=== PATIENT | female | born 1980 | race Caucasian/White ===

== ENCOUNTER 2019-05-28 18:14 | Inpatient (IN) | payer OTHER ==
[2019-05-28 19:12] VITALS: BMI 22.6
--- NOTE | 2019-05-28 21:28 | HP ---
"CIWA Score - Admission Criteria OASAS Guidelines: Admission for Medically Managed Detox: Requires at least one of the followin. CIWA greater than 12 2. Seizures within the past 24 hours 3. Delirium tremens within the past 24 hours 4. Hallucinations within the past 24 hours 5. Acute intervention needed for co occurring medical disorder 6. Acute intervention needed for co occurring psychiatric disorder 7. Severe withdrawal that cannot be handled at a lower level of care (continued vomiting, continued diarrhea, abnormal vital signs) requiring intravenous medication and/or fluids 8. Admission ROS S - [facility] Chief Complaint: Here for rehab Allergies/Adverse Reactions: Allergies Allergy/AdvReac Type Severity Reaction Status Date / Time No Known Allergies Allergy Verified 05/28/19 18:56 History of Present Illness: 38 yo presents for rehab w/ recent detox from [facility] for heroin , crystal meth use disorder. Heroin use began at age 36. Last used 05/24/19. (Nasal/injection) Crystal methamphetamine use began at age 33. Last used 05/21/19. Labs/PE from [facility] reviewed: Quantiferon Plus TB: Neg: Done at [facility] on 07/26/18. HGB A1C = 5.2 EKG: NSR w/ Qt/Qtc 386/459 CBC: Abn Hx: Multiple overdoses; Last 4 months ago. Has a Narcan Kit. PMHx: Denies significant PMH. MHHx: Anxiety r/t withdrawal; Depression. On Meds. Denies thoughts of harming self or others. Patient Name: Emili Puga Date: 1980 Address: [address] [place] [address] Sex: Female Rx Written Rx Dispensed Drug Quantity Days Supply Prescriber Name 03/01/2019 03/02/2019 buprenorphine-naloxone 2-0.5 mg sl film 2 2 Magdalene Cota MD 03/01/2019 03/02/2019 buprenorphine-naloxone 2-0.5 mg sl film 4 2 Magdalene Cota MD Search Terms: Emili Puga, 1980 Search Date: 05/28/2019 09:26:16 PM States Searched: [place], [place], [place], [place], [place], [place] The Drug Utilization Report below displays the controlled substance prescriptions, if any, that were dispensed in the indicated state(s). The information displayed on this report is compiled from requests submitted to other states' PMPs, and accurately reflects the information as returned by them. Blank hernandez indicate data not provided by other state. This report was requested by: Claire Stroud | Reference #: [id number] Exam Limitations: No Limitations - Ebola screening Have you traveled outside of the country in the last 21 days: No (N) Have you had contact with anyone from an Ebola affected area: No Have you been sick,other than usual withdrawal symptoms: No (Denies exposure to measles) Do you have a fever: No - Review of Systems Constitutional: No Symptoms Reported EENT: reports: No Symptoms Reported Respiratory: reports: No Symptoms reported, Wheezing GI: reports: No Symptoms Reported : reports: No Symptoms Reported Musculoskeletal: reports: No Symptoms Reported Neuro: reports: No Symptoms reported Endocrine: reports: Increased Thirst Hematology: reports: Anemia (Low iron) Psychiatric: reports: Orientated x3, Agitated, Depressed (Denies thoughts of harming self or others) Patient History - PPD History Previous Implant?: Yes Documented Results: Negative w/proof Implanted On Prior [facility] Admission?: No Date: 05/25/19 (Quantiferon Gold = Neg ) PPD to be Administered?: No - Reproductive History Patient is a Female of Child Bearing Age (11 -55 yrs old): Yes Last Menstrual Period: 05/25/19 (Had a recent PAP smear) Patient : No - Smoking Cessation Smoking history: Former smoker Have you smoked in the past 12 months: No Hx Chewing Tobacco Use: No Initiated information on smoking cessation: No - Substance & Tx. History Hx Alcohol Use: No Hx Substance Use: Yes Substance Use Type: Heroin, Opiates, Tranquilizers (Crystal meth) Hx Substance Use Treatment: Yes (detox, rehab, past Suboxone) - Substances abused Heroin Substance route: Injection Frequency: Daily Amount used: 5 bags Age of first use: 36 Date of last use: 05/28/19 Benzodiazepine (Klonopin) Substance route: Oral Frequency: 1-3 times last 30 days Amount used: 2 pills Age of first use: 36 Date of last use: 05/27/19 Crystal meth Substance route: Smoking Frequency: 1-3 times last 30 days Amount used: 1 bag Age of first use: 33 Date of last use: 05/26/19 Admission Physical Exam [facility] - Vital Signs Vital Signs: Vital Signs - 24 hr 05/28/19 05/28/19 19:00 20:49 Temperature 97.8 F 97.8 F Pulse Rate 98 H 98 H Respiratory 18 18 Rate Blood Pressure 123/87 123/87 - Physical General Appearance: Yes: No Apparent Distress, Nourished HEENTM: Yes: EOMI, Hearing grossly Normal, Normocephalic, Normal Voice, EMILY ( Pupils = 3 mm), Pharynx Normal Respiratory: Yes: Lungs Clear, Normal Breath Sounds, No Respiratory Distress Neck: Yes: No masses,lesions,Nodules, Supple Breast: Yes: Breast Exam Deferred Cardiology: Yes: Regular Rhythm, Regular Rate (HR: 88), S1, S2 Abdominal: Yes: Non Tender, Flat, Soft, Increased Bowel Sounds Genitourinary: Yes: Within Normal Limits Back: Yes: Normal Inspection Musculoskeletal: Yes: full range of Motion, Gait Steady Extremities: Yes: Normal Capillary Refill, Normal Range of Motion, Non-Tender Neurological: Yes: motor vehicle technician II-XII NML intact, Fully Oriented, Alert, Motor Strength 5/5, Normal Mood/Affect Integumentary: Yes: Normal Color, Warm Lymphatic: Yes: Within Normal Limits - Diagnostic (1) Opioid use disorder, moderate, in early remission Current Visit: Yes Status: Acute (2) 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 Current Visit: Yes Status: Acute (3) Abnormal CBC Current Visit: Yes Status: Chronic Cleared for Admission [facility] - Detox or Rehab Claeared for Rehab Admission: Yes Breathalyzer - Breathalyzer Breathalyzer: 0 Urine Drug Screen - Test Device Lot number: [id number] Expiration date: 02/27/21 - Control Is test valid?: Yes - Results Drug screen NEGATIVE: No Urine drug screen results: MTD-Methadone Inpatient Rehab Admission - Rehab Decision to Admit Inpatient rehab admission?: Yes - Initial Determination Are CD services needed?: Yes Free of communicable disease: Yes Not in need of hospitalization: Yes - Rehab Admission Criteria Previous failed treatment: Yes Poor recovery environment: Yes Comorbidities: Yes Lacks judgement: No Patient is meeting Inpatient Rehab admission criteria:: Yes"
[2019-05-28] MEDS ORDERED: ACETAMINOPHEN 325 MG TABLET (FP) PO PRN (21:50)
[2019-05-28] MEDS ORDERED: MAGNESIUM CITRATE 300 ML BOTTLE PO PRN (21:50)
[2019-05-28] MEDS ORDERED: MAG HYDROX/AL HYDROX/SIMETH 30 ML UNIT-DOSE CUP PO PRN (21:50)
[2019-05-28] MEDS ORDERED: MAGNESIUM HYDROX 2400MG/30ML ORAL SUSPENSION 30 ML CUP PO PRN (21:50)
[2019-05-28] MEDS ORDERED: LOPERAMIDE HCL 2 MG CAPSULE PO PRN (21:50)
[2019-05-28] MEDS ORDERED: P-EPHED 60MG/TRIPROLIDI 2.5MG TABLET PO PRN (21:50)
[2019-05-28] MEDS ORDERED: guaiFENesin 200 MG/10 ML 10 ML UNIT-DOSE CUPS PO PRN (21:50)
[2019-05-28] MEDS ORDERED: IBUPROFEN 400 MG TABLET (FP) PO PRN (21:50)
[2019-05-28] MEDS ORDERED: hydrOXYzine PAMOATE 50 MG CAPSULE (FP) PO PRN (21:50)
[2019-05-28] MEDS ORDERED: MENTHOL/PHENOL 1 EACH UD MM PRN (21:50)
[2019-05-28] MEDS: hydrOXYzine PAMOATE 25 MG CAPSULE (FP) PO PRN (23:27)
[2019-05-28] MEDS: MELATONIN 5 MG TABLETS PO PRN (23:27)
[2019-05-28] MEDS: THIAMINE HCL 100 MG TABLET (FP) PO SCH (23:27)
[2019-05-29] MEDS: PRENATAL VITAMINS W/ FOLIC ACID TABLET (FP) PO SCH (09:54)
[2019-05-29] MEDS: hydrOXYzine PAMOATE 25 MG CAPSULE (FP) PO PRN ×3 (10:22→21:27)
[2019-05-29] MEDS ORDERED: ONDANSETRON *ODT* 4 MG TABLET SL PRN (13:40)
--- NOTE | 2019-05-29 13:45 | PN ---
S Progress Note Note: Pt is nw to rehab unit admitted yesterday from [facility] reports withdrawal sx from heroin detox at [facility] yesterday. Reports n/v,constipation,muscle /body aches and spasms, runny nose. Vital Signs - 24 hr 05/28/19 05/28/19 05/28/19 19:00 20:49 22:40 Temperature 97.8 F 97.8 F 98.4 F Pulse Rate 98 H 98 H 85 Respiratory 18 18 18 Rate Blood Pressure 123/87 123/87 119/87 05/29/19 05/29/19 05:26 07:13 Temperature 97.8 F Pulse Rate 85 93 H Respiratory 18 18 Rate Blood Pressure 104/78 Lab results pending a:w/s roma plan:zofran sl 8mg as directed prn actifed prn MOM for constipation and citrate if not effective Robaxin 500 mg po tid prn for muscle spasm motrin prn for body aches.
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
[2019-05-29 13:54] LABS: HEMATOCRIT 35.9 % (32.4-45.2); HEMOGLOBIN 11.8 GM/dL (10.7-15.3); MCH 29.4 pg (25.7-33.7); MCHC 32.9 g/dl (32.0-36.0); MEAN CELL VOLUME 89.3 fl (80-96); MEAN PLT VOLUME 10.2 fl (7.5-11.1); PLATELET COUNT 208 K/MM3 (134-434); RBC 4.02 M/mm3 (3.60-5.2); RDW 14.2 % (11.6-15.6)
[2019-05-29] MEDS: METHOCARBAMOL 500 MG TABLET PO PRN ×2 (14:03→21:27)
[2019-05-29 14:12] LABS: ALBUMIN 3.7 g/dl (3.4-5.0); BILIRUBIN,TOTAL 0.4 mg/dL (0.2-1); BLOOD UREA NITROGEN 9.6 mg/dL (7-18); CALCIUM 9.7 mg/dL (8.5-10.1); CREATININE 0.9 mg/dL (0.55-1.3); POTASSIUM 4.4 mmol/L (3.5-5.1); TOT PROT 7.5 g/dl (6.4-8.2)
[2019-05-29] MEDS: PARoxetine HCL 20 MG TABLET PO SCH (15:09)
[2019-05-29] MEDS: THIAMINE HCL 100 MG TABLET (FP) PO SCH (21:27)
[2019-05-29] MEDS: MELATONIN 5 MG TABLETS PO PRN (21:28)
[2019-05-30 07:08] VITALS: BP 104/71; PULSE 99; TEMP 98.3
[2019-05-30] MEDS: PARoxetine HCL 20 MG TABLET PO SCH (09:10)
[2019-05-30] MEDS: PRENATAL VITAMINS W/ FOLIC ACID TABLET (FP) PO SCH (09:10)
[2019-05-30] MEDS: hydrOXYzine PAMOATE 25 MG CAPSULE (FP) PO PRN ×2 (10:58→21:14)
[2019-05-30] MEDS: METHOCARBAMOL 500 MG TABLET PO PRN ×2 (10:58→21:14)
[2019-05-30] MEDS ORDERED: NICOTINE POLACRILEX 2 MG GUM BUC PRN (11:58)
[2019-05-30] MEDS ORDERED: NICOTINE 14 MG/24 HOURS TOPICAL PATCH TD SCH (12:00)
--- NOTE | 2019-05-30 13:05 | PN ---
BHS COWS - Scale Resting Pulse: 1= CO 81-100 Sweatin=Flushed/Facial Moisture Restless Observation: 0= Sits Still Pupil Size: 0= Normal to Room Light Bone or Joint Aches: 2= Severe Diffuse Aches Runny Nose/ Eye Tearin= Runny Nose/Eyes GI Upset > 30mins: 1= Stomach Cramp Tremor Observation of Outstretched Hands: 2= Slight Tremor Visible Yawning Observation: 1= 1-2x During Session Anxiety or Irritability: 2=Irritable/Anxious Goose Flesh Skin: 0=Smooth Skin COWS Score: 13 BHS Progress Note (SOAP) Subjective: Patient is experiencing withdrawal symptoms. " I don't feel comfortable in my own skin." Completed Detox in [facility] and came to [facility] for Rehab. Her last dose of methadone was on 05/28 and she has not been prescribed methadone while in rehabl. patient was on suboxone in February 2019 during a stay in drug rehab, and states that 3 years ago, she was on Suboxone for 3 years but stopped because she could not get to her provider on a regular basis. She also was using crystal meth and benzos to "keep her going" while on Suboxone. Objective: - Physical General Appearance: No Apparent Distress, Nourished HEENTM: Normocephalic, PERRLA Respiratory: Lungs Clear, Normal Breath Sounds, No Respiratory Distress Neck: Supple Cardiology: S1, S2 Abdominal: Non Tender, Flat, Soft, +Bowel Sounds Musculoskeletal: full range of Motion, Gait Steady Extremities: brisk Capillary Refill, Neurological: fingerprint technician II-XII intact, Fully Oriented, Alert, Integumentary: Color consistent throughout trunk and extremities. COWS score; 13 UTOX upon admission: Drug screen NEGATIVE: No Urine drug screen results: MTD-Methadone 05/30/19 13:08 CBC, BMP 05/29/19 08:43 05/29/19 08:43 Vital Signs (72 hours) 05/28/19 05/28/19 05/28/19 19:00 20:49 22:40 Temperature 97.8 F 97.8 F 98.4 F Pulse Rate 98 H 98 H 85 Respiratory 18 18 18 Rate Blood Pressure 123/87 123/87 119/87 05/29/19 05/29/19 05/29/19 05:26 07:13 15:15 Temperature 97.8 F Pulse Rate 85 93 H 111 H Respiratory 18 18 20 Rate Blood Pressure 104/78 119/82 05/30/19 05/30/19 05/30/19 00:30 03:30 07:07 Temperature 98.3 F Pulse Rate 99 H Respiratory 16 16 18 Rate Blood Pressure 104/71 05/30/19 13:10 Patient Name: Emili Puga Date: 1980 Address: [address] [place] [address] Sex: Female 03/01/2019 03/02/2019 buprenorphine-naloxone 2-0.5 mg sl film 2 2 Magdalene Cota MD 03/01/2019 03/02/2019 buprenorphine-naloxone 2-0.5 mg sl film 4 2 Magdalene Cota MD 05/30/19 13:14 05/30/19 13:19 05/30/19 13:27 Assessment: Heroin Withdrawal symptoms Good candidate for suboxone 05/30/19 13:22 Plan: PLAN: will order urine toxicology, pending results, will start on 2mg/BID of Suboxone.
[2019-05-30 14:49] LABS: PH,URINE 5.5 (5.0-8.0); URINE APPEARANCE CLEAR; URINE BILIRUBIN NEGATIVE (NEGATIVE); URINE COLOR YELLOW; URINE GLUCOSE (UA) NEGATIVE (NEGATIVE); URINE KETONE NEGATIVE (NEGATIVE); URINE LEUK ESTERASE NEGATIVE (NEGATIVE); URINE NITRITE NEGATIVE (NEGATIVE); URINE PROTEIN NEGATIVE (NEGATIVE); URINE UROBILINOGEN 0.2 mg/dL (0.2-1.0)
[2019-05-30] MEDS ORDERED: BUPRENORPHINE/NALOXONE 2 MG/0.5 MG FILM PACKET SL SCH (18:00)
[2019-05-30] MEDS: MELATONIN 5 MG TABLETS PO PRN (21:13)
[2019-05-30] MEDS: THIAMINE HCL 100 MG TABLET (FP) PO SCH (21:13)
--- NOTE | 2019-05-31 01:18 | PN ---
[facility] Progress Note Note: INFORMED CLIENT ELOPED OFF UNIT AT APPROX 1130 PM ON 05/30/2019
== END 2019-05-30 23:39 | disposition left against medical advice (07) | DRG 770 ==
LOC: YASAS 18:14 → Y3E 21:49
PROVIDERS: ADMIT Neuromusculoskeletal Medicine & OMM; ATTEND Neuromusculoskeletal Medicine & OMM
PROC: HZ42ZZZ Group Counseling for Substance Abuse Treatment, Cognitive-Behavioral (ICD-10-PCS; principal; 2019-05-28)
DX: F11.23 Opioid dependence with withdrawal (principal); F15.10 Other stimulant abuse, uncomplicated; F32.9 Major depressive disorder, single episode, unspecified; F19.24 Other psychoactive substance dependence with psychoactive substance-induced mood disorder; F19.282 Other psychoactive substance dependence with psychoactive substance-induced sleep disorder; R79.9 Abnormal finding of blood chemistry, unspecified; Z87.891 Personal history of nicotine dependence
CPT/HCPCS: 36415; 80053; 81003; 81025; 85027; 86593

== ENCOUNTER 2019-10-16 12:42 | Inpatient (IN) | payer OTHER ==
[2019-10-16 13:05] VITALS: BMI 24.6
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
[2019-10-16] MEDS ORDERED: MAGNESIUM HYDROX 2400MG/30ML ORAL SUSPENSION 30 ML CUP PO PRN (19:35)
[2019-10-16] MEDS ORDERED: BISMUTH SUBSALICYLATE 524 MG/30 ML UD PO PRN (19:35)
[2019-10-16] MEDS ORDERED: MENTHOL/PHENOL 1 EACH UD MM PRN (19:35)
[2019-10-16] MEDS ORDERED: hydrOXYzine PAMOATE 25 MG CAPSULE (FP) PO PRN (19:35)
[2019-10-16] MEDS ORDERED: MAG HYDROX/AL HYDROX/SIMETH 30 ML UNIT-DOSE CUP PO PRN (19:35)
[2019-10-16] MEDS ORDERED: ACETAMINOPHEN 325 MG TABLET (FP) PO PRN ×2 (19:35)
[2019-10-16] MEDS ORDERED: IBUPROFEN 400 MG TABLET (FP) PO PRN (19:35)
[2019-10-16] MEDS ORDERED: MAGNESIUM CITRATE 300 ML BOTTLE PO PRN (19:35)
[2019-10-16] MEDS ORDERED: cloNIDine HCL 0.1 MG TABLET PO PRN (19:36)
[2019-10-16] MEDS: THIAMINE HCL 100 MG TABLET (FP) PO SCH (21:20)
[2019-10-16] MEDS: MELATONIN 5 MG TABLETS PO PRN (21:20)
[2019-10-16] MEDS ORDERED: METHADONE HCL 10 MG TABLET (FOR DETOX USE ONLY) PO ONE (22:00)
[2019-10-16] MEDS: BACITRACIN/POLYMYXIN B SULFATE 15 GM TUBE TP SCH (22:21)
[2019-10-17] MEDS ORDERED: METHADONE HCL 5 MG TABLET (FOR DETOX USE ONLY) PO ONE (10:00)
[2019-10-17 10:04] LABS: HEMATOCRIT 33.3 % (32.4-45.2); HEMOGLOBIN 11.1 GM/dL (10.7-15.3); MCH 29.7 pg (25.7-33.7); MCHC 33.5 g/dl (32.0-36.0); MEAN CELL VOLUME 88.6 fl (80-96); MEAN PLT VOLUME 8.3 fl (7.5-11.1); PLATELET COUNT 318 K/MM3 (134-434); RBC 3.75 M/mm3 (3.60-5.2); RDW 12.8 % (11.6-15.6); WHITE BLOOD COUNT 4.1 K/mm3 (4.0-10.0)
[2019-10-17] MEDS: PRENATAL VITAMINS W/ FOLIC ACID TABLET (FP) PO SCH (10:07)
[2019-10-17] MEDS: BACITRACIN/POLYMYXIN B SULFATE 15 GM TUBE TP SCH ×2 (10:09→22:27)
[2019-10-17 10:19] LABS: BILIRUBIN,TOTAL 0.3 mg/dL (0.2-1); BLOOD UREA NITROGEN 7.8 mg/dL (7-18); CALCIUM 8.5 mg/dL (8.5-10.1); CREATININE 0.7 mg/dL (0.55-1.3); POTASSIUM 4.3 mmol/L (3.5-5.1); TOT PROT 6.4 g/dl (6.4-8.2)
--- NOTE | 2019-10-17 13:13 | PN ---
BHS COWS - Scale Resting Pulse: 1= [place] 81-100 Sweatin= Chills/Flushing Restless Observation: 0= Sits Still Pupil Size: 1= Pupils >than Normal Bone or Joint Aches: 1= Mild Discomfort Runny Nose/ Eye Tearin= None GI Upset > 30mins: 1= Stomach Cramp Tremor Observation of Outstretched Hands: 2= Slight Tremor Visible Yawning Observation: 0= None Anxiety or Irritability: 2=Irritable/Anxious Goose Flesh Skin: 3=Piloerection COWS Score: 12 BHS Progress Note (SOAP) Subjective: 39 years old female admitted on 10/16/19 for opiate withdrawal sx management treating with methadone detox regimen ate breakfast and lunch resting on bed feeling tired Objective: 10/17/19 13:16 Vital Signs Temperature 97.5 F L 10/17/19 09:22 Pulse Rate 92 H 10/17/19 09:22 Respiratory Rate 18 10/17/19 09:22 Blood Pressure 112/76 10/17/19 09:22 O2 Sat by Pulse Oximetry (%) Laboratory Last Values WBC 4.1 K/mm3 (4.0-10.0) 10/17/19 07:50 RBC 3.75 M/mm3 (3.60-5.2) 10/17/19 07:50 Hgb 11.1 GM/dL (10.7-15.3) 10/17/19 07:50 Hct 33.3 % (32.4-45.2) 10/17/19 07:50 MCV 88.6 fl (80-96) 10/17/19 07:50 MCH 29.7 pg (25.7-33.7) 10/17/19 07:50 MCHC 33.5 g/dl (32.0-36.0) 10/17/19 07:50 RDW 12.8 % (11.6-15.6) 10/17/19 07:50 Plt Count 318 K/MM3 (134-434) D 10/17/19 07:50 MPV 8.3 fl (7.5-11.1) D 10/17/19 07:50 Sodium 142 mmol/L (136-145) 10/17/19 07:50 Potassium 4.3 mmol/L (3.5-5.1) 10/17/19 07:50 Chloride 106 mmol/L (98-107) 10/17/19 07:50 Carbon Dioxide 31 mmol/L (21-32) 10/17/19 07:50 Anion Gap 4 MMOL/L (8-16) L 10/17/19 07:50 BUN 7.8 mg/dL (7-18) 10/17/19 07:50 Creatinine 0.7 mg/dL (0.55-1.3) 10/17/19 07:50 Est GFR (CKD-EPI)AfAm 127.39 10/17/19 07:50 Est GFR (CKD-EPI)NonAf 109.91 10/17/19 07:50 Random Glucose 87 mg/dL (74-106) 10/17/19 07:50 Calcium 8.5 mg/dL (8.5-10.1) 10/17/19 07:50 Total Bilirubin 0.3 mg/dL (0.2-1) 10/17/19 07:50 AST 24 U/L (15-37) 10/17/19 07:50 ALT 25 U/L (13-61) 10/17/19 07:50 Alkaline Phosphatase 83 U/L (45-117) 10/17/19 07:50 Total Protein 6.4 g/dl (6.4-8.2) 10/17/19 07:50 Albumin 3.0 g/dl (3.4-5.0) L 10/17/19 07:50 POC Urine HCG, Qual Negative 10/16/19 19:12 RPR Titer Nonreactive (NONREACTIVE) 10/17/19 07:50 lab noted Assessment: 10/17/19 13:16 opiate withdrawal Plan: methadone regimen
--- NOTE | 2019-10-17 15:58 | CONSULT ---
[facility] Psychiatric Consult - Data Date of interview: 10/17/19 Admission source: [facility] Identifying data: Patient is a 39 year old single [place] female, mother of one, unemployed, domiciled, and denies receiving financial assistance. This is patient's first admission to detox at [facility]. Patient admitted to for opiate dependence. Substance Abuse History: Smoking Cessation. Smoking history: Former smoker. Have you smoked in the past 12 months: No. Hx Chewing Tobacco Use: No. Initiated information on smoking cessation: No. - Substances abused. Heroin. Substance route: Injection. Frequency: Daily. Amount used: 5-6 bags. Age of first use: 36. Date of last use: 10/16/19. Benzodiazepine ( Klonopin). Substance route: Oral. Frequency: 1-3 times last 30 days. Amount used: 2 pills. Age of first use: 36. Date of last use: 05/27/19. Crystal meth. Substance route: Smoking. Frequency: 1-3 times last 30 days. Amount used: 1 bag. Age of first use: 33. Date of last use: 05/26/19 Medical History: unremarkable. Psychiatric History: Patient denies history of psychiatric hospitalizations and suicide attempt. States that her first psychiatric contact was in her late 20's after seeing a psychiatrist in [facility]. She reports additional psychiatric treatment when admitted to detox/rehab facilities. Reports past trial of zoloft and adderal although denies history of ADHD. States that her PCP currently prescribes her paxil 30mg (last took two days ago). Diagnosis of depression. At present patient reports feeling sad. Physical/Sexual Abuse/Trauma History: denies. 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 Detoxification in progress. Will order Paxil 30mg daily. Benefits and side effects discussed. Verbal consent given.
[2019-10-17] MEDS: THIAMINE HCL 100 MG TABLET (FP) PO SCH (22:26)
[2019-10-17] MEDS: MELATONIN 5 MG TABLETS PO PRN (22:34)
[2019-10-18] MEDS: METHOCARBAMOL 500 MG TABLET PO PRN ×2 (07:16→20:21)
[2019-10-18] MEDS ORDERED: METHADONE HCL 10 MG TABLET (FOR DETOX USE ONLY) PO ONE (10:00)
[2019-10-18] MEDS: PRENATAL VITAMINS W/ FOLIC ACID TABLET (FP) PO SCH (10:44)
[2019-10-18] MEDS: PARoxetine HCL 10 MG TABLET PO SCH (10:44)
[2019-10-18] MEDS: BACITRACIN/POLYMYXIN B SULFATE 15 GM TUBE TP SCH ×2 (10:45→22:27)
--- NOTE | 2019-10-18 11:56 | PN ---
[facility] COWS - Scale Resting Pulse: 0= MI 80 or Below Sweatin= Chills/Flushing Restless Observation: 0= Sits Still Pupil Size: 0= Normal to Room Light Bone or Joint Aches: 1= Mild Discomfort Runny Nose/ Eye Tearin= Nasal Congestion GI Upset > 30mins: 1= Stomach Cramp Tremor Observation of Outstretched Hands: 1= Tremor [place], Not Seen Yawning Observation: 1= 1-2x During Session Anxiety or Irritability: 1=Feels Anxious/Irritable Goose Flesh Skin: 0=Smooth Skin COWS Score: 7 [facility] Progress Note (SOAP) Subjective: 39 years old female admitted on 10/16/19 for opiate withdrawal sx management treating with methadone detox regimen feeling better today slept through the night mild general body aches Objective: 10/18/19 12:07 Vital Signs Temperature 97.2 F L 10/18/19 09:22 Pulse Rate 77 10/18/19 09:22 Respiratory Rate 18 10/18/19 09:22 Blood Pressure 120/86 10/18/19 09:22 O2 Sat by Pulse Oximetry (%) Laboratory Last Values WBC 4.1 K/mm3 (4.0-10.0) 10/17/19 07:50 RBC 3.75 M/mm3 (3.60-5.2) 10/17/19 07:50 Hgb 11.1 GM/dL (10.7-15.3) 10/17/19 07:50 Hct 33.3 % (32.4-45.2) 10/17/19 07:50 MCV 88.6 fl (80-96) 10/17/19 07:50 MCH 29.7 pg (25.7-33.7) 10/17/19 07:50 MCHC 33.5 g/dl (32.0-36.0) 10/17/19 07:50 RDW 12.8 % (11.6-15.6) 10/17/19 07:50 Plt Count 318 K/MM3 (134-434) D 10/17/19 07:50 MPV 8.3 fl (7.5-11.1) D 10/17/19 07:50 Sodium 142 mmol/L (136-145) 10/17/19 07:50 Potassium 4.3 mmol/L (3.5-5.1) 10/17/19 07:50 Chloride 106 mmol/L (98-107) 10/17/19 07:50 Carbon Dioxide 31 mmol/L (21-32) 10/17/19 07:50 Anion Gap 4 MMOL/L (8-16) L 10/17/19 07:50 BUN 7.8 mg/dL (7-18) 10/17/19 07:50 Creatinine 0.7 mg/dL (0.55-1.3) 10/17/19 07:50 Est GFR (CKD-EPI)AfAm 127.39 10/17/19 07:50 Est GFR (CKD-EPI)NonAf 109.91 10/17/19 07:50 Random Glucose 87 mg/dL (74-106) 10/17/19 07:50 Calcium 8.5 mg/dL (8.5-10.1) 10/17/19 07:50 Total Bilirubin 0.3 mg/dL (0.2-1) 10/17/19 07:50 AST 24 U/L (15-37) 10/17/19 07:50 ALT 25 U/L (13-61) 10/17/19 07:50 Alkaline Phosphatase 83 U/L (45-117) 10/17/19 07:50 Total Protein 6.4 g/dl (6.4-8.2) 10/17/19 07:50 Albumin 3.0 g/dl (3.4-5.0) L 10/17/19 07:50 POC Urine HCG, Qual Negative 10/16/19 19:12 RPR Titer Nonreactive (NONREACTIVE) 10/17/19 07:50 lab noted Assessment: 10/18/19 12:07 opiate withdrawal Plan: methadone regimen
[2019-10-18] MEDS: MELATONIN 5 MG TABLETS PO PRN (22:27)
[2019-10-18] MEDS: THIAMINE HCL 100 MG TABLET (FP) PO SCH (22:27)
[2019-10-19] MEDS: METHOCARBAMOL 500 MG TABLET PO PRN (01:21)
[2019-10-19] MEDS: MELATONIN 5 MG TABLETS PO PRN (02:54)
[2019-10-19] MEDS ORDERED: METHADONE HCL 5 MG TABLET (FOR DETOX USE ONLY) PO ONE (06:00)
[2019-10-19 09:14] VITALS: BP 121/84; PULSE 97; TEMP 98.6
[2019-10-19] MEDS: PARoxetine HCL 10 MG TABLET PO SCH (10:29)
[2019-10-19] MEDS: PRENATAL VITAMINS W/ FOLIC ACID TABLET (FP) PO SCH (10:29)
[2019-10-19] MEDS: BACITRACIN/POLYMYXIN B SULFATE 15 GM TUBE TP SCH (10:29)
--- NOTE | 2019-10-19 12:39 | DS ---
[facility] Detox Discharge Summary Admission Date: 10/16/19 - History Present History: Opioid Dependence Pertinent Past History: Pt completed detox from opioids. Pt was to have remained here for rehab, but pt this morning decided to be discharged to home. d/w MAT options. Pt states will f /u PCP - Physical Exam Results Vital Signs: Vital Signs Temperature 98.6 F 10/19/19 09:14 Pulse Rate 97 H 10/19/19 09:14 Respiratory Rate 18 10/19/19 09:14 Blood Pressure 121/84 10/19/19 09:14 O2 Sat by Pulse Oximetry (%) - Treatment Hospital Course: Detox Protocol Followed, Detoxed Safely, Discharged Condition Good - Medication Discharge Medications: Ambulatory Orders Paroxetine HCl [Paxil -] 30 mg PO DAILY 05/28/19 Naloxone HCl [Narcan] 4 mg NS ASDIR PRN #1 spray 10/17/19
== END 2019-10-19 11:20 | disposition home or self-care (01) | DRG 773 ==
LOC: YASAS 12:42 → Y3N 20:07
PROVIDERS: ADMIT Allergy & Immunology; ATTEND Allergy & Immunology
PROC: HZ2ZZZZ Detoxification Services for Substance Abuse Treatment (ICD-10-PCS; principal; 2019-10-16)
DX: F11.23 Opioid dependence with withdrawal (principal); F15.10 Other stimulant abuse, uncomplicated; F19.24 Other psychoactive substance dependence with psychoactive substance-induced mood disorder; F32.9 Major depressive disorder, single episode, unspecified; Z87.891 Personal history of nicotine dependence
CPT/HCPCS: 36415; 80053; 81025; 85027; 86593

== ENCOUNTER 2021-03-17 15:45 | Inpatient (IN) | payer OTHER ==
[2021-03-17 18:39] VITALS: BMI 27.3
[2021-03-17] MEDS ORDERED: METHOCARBAMOL 500 MG TABLET PO PRN (19:16)
[2021-03-17] MEDS ORDERED: BISMUTH SUBSALICYLATE 524 MG/30 ML PO PRN (19:16)
[2021-03-17] MEDS ORDERED: ONDANSETRON *ODT* 4 MG TABLET SL PRN (19:16)
[2021-03-17] MEDS ORDERED: MAG HYDROX/AL HYDROX/SIMETH 30 ML UNIT-DOSE CUP PO PRN (19:16)
[2021-03-17] MEDS ORDERED: MAGNESIUM HYDROX 2400MG/30ML ORAL SUSPENSION 30 ML CUP PO PRN (19:16)
[2021-03-17] MEDS ORDERED: MENTHOL/PHENOL 1 EACH UD MM PRN (19:16)
[2021-03-17] MEDS ORDERED: MAGNESIUM CITRATE 300 ML BOTTLE PO PRN (19:16)
[2021-03-17] MEDS ORDERED: hydrOXYzine PAMOATE 25 MG CAPSULE (FP) PO PRN (19:16)
[2021-03-17] MEDS ORDERED: IBUPROFEN 400 MG TABLET (FP) PO PRN (19:16)
[2021-03-17] MEDS ORDERED: ACETAMINOPHEN 325 MG TABLET (FP) PO PRN ×2 (19:16)
[2021-03-17] MEDS ORDERED: diazePAM 5 MG TABLET PO PRN (19:26)
[2021-03-17] MEDS: THIAMINE HCL 100 MG TABLET (FP) PO SCH (22:28)
[2021-03-17] MEDS: diazePAM 5 MG TABLET PO SCH (22:28)
[2021-03-17] MEDS: MELATONIN 5 MG TABLETS PO SCH (22:28)
[2021-03-18] MEDS: diazePAM 5 MG TABLET PO SCH ×4 (06:04→22:12)
[2021-03-18] MEDS ORDERED: METHADONE HCL 10 MG TABLET ONE (09:44)
[2021-03-18] MEDS ORDERED: METHADONE 160 MG, METHADONE 20 MG PO ONE (09:45)
[2021-03-18] MEDS ORDERED: METHADONE HCL 40 MG DISPERSABLE TABLET ONE (09:45)
[2021-03-18] MEDS ORDERED: METHADONE HCL 10 MG TABLET PO ONE (10:00)
[2021-03-18 10:10] LABS: HEMATOCRIT 33.6 % (32.4-45.2); HEMOGLOBIN 11.2 GM/dL (10.7-15.3); MCH 30.2 pg (25.7-33.7); MCHC 33.4 g/dl (32.0-36.0); MEAN CELL VOLUME 90.5 fl (80-96); MEAN PLT VOLUME 10.5 fl (7.5-11.1); PLATELET COUNT 188 K/MM3 (134-434); RBC 3.72 M/mm3 (3.60-5.2); RDW 12.9 % (11.6-15.6); WHITE BLOOD COUNT 5.5 K/mm3 (4.0-10.0)
[2021-03-18 10:24] LABS: CALCIUM 8.7 mg/dL (8.5-10.1)
[2021-03-18 10:26] LABS: ALBUMIN 3.2 g/dl (3.4-5.0); BLOOD UREA NITROGEN 10.1 mg/dL (7-18); TOT PROT 6.3 g/dl (6.4-8.2)
[2021-03-18 10:28] LABS: BILIRUBIN,TOTAL 0.3 mg/dL (0.2-1); CREATININE 0.7 mg/dL (0.55-1.3)
[2021-03-18] MEDS: PRENATAL VITAMINS W/ FOLIC ACID TABLET (FP) PO SCH (10:33)
[2021-03-18] MEDS: ESCITALOPRAM OXALATE 20 MG TABLET PO SCH (11:09)
[2021-03-18] MEDS: MELATONIN 5 MG TABLETS PO SCH (22:12)
[2021-03-18] MEDS: THIAMINE HCL 100 MG TABLET (FP) PO SCH (22:12)
[2021-03-19] MEDS ORDERED: METHADONE HCL 10 MG TABLET ONE (04:17)
[2021-03-19] MEDS ORDERED: METHADONE HCL 40 MG DISPERSABLE TABLET ONE (04:18)
[2021-03-19] MEDS: METHADONE 160 MG, METHADONE 20 MG PO SCH (05:19)
[2021-03-19] MEDS: diazePAM 5 MG TABLET PO SCH ×2 (05:20→18:25)
[2021-03-19] MEDS ORDERED: METHADONE HCL 10 MG TABLET PO SCH (06:00)
[2021-03-19] MEDS: PRENATAL VITAMINS W/ FOLIC ACID TABLET (FP) PO SCH (10:24)
[2021-03-19] MEDS: ESCITALOPRAM OXALATE 20 MG TABLET PO SCH (10:24)
[2021-03-19] MEDS: THIAMINE HCL 100 MG TABLET (FP) PO SCH (22:15)
[2021-03-19] MEDS: MELATONIN 5 MG TABLETS PO SCH (22:15)
[2021-03-20] MEDS ORDERED: METHADONE HCL 40 MG DISPERSABLE TABLET ONE (03:10)
[2021-03-20] MEDS ORDERED: METHADONE HCL 10 MG TABLET ONE (03:10)
[2021-03-20] MEDS: METHADONE 160 MG, METHADONE 20 MG PO SCH (05:29)
[2021-03-20] MEDS ORDERED: diazePAM 5 MG TABLET PO ONE (06:00)
[2021-03-20 10:07] LABS: SARS-CoV-2 NAA Not Detected (Not Detected)
[2021-03-20] MEDS: PRENATAL VITAMINS W/ FOLIC ACID TABLET (FP) PO SCH (10:27)
[2021-03-20] MEDS: ESCITALOPRAM OXALATE 20 MG TABLET PO SCH (10:27)
[2021-03-20 11:22] VITALS: BP 93/67; PULSE 72; TEMP 97.5
== END 2021-03-20 13:59 | disposition other institution (70) | DRG 773 ==
LOC: YASAS 15:45 → UNDOADMIN 19:19 → Y6N 19:19
PROVIDERS: ADMIT Allergy & Immunology; ATTEND Allergy & Immunology
PROC: HZ2ZZZZ Detoxification Services for Substance Abuse Treatment (ICD-10-PCS; principal; 2021-03-17)
DX: F10.230 Alcohol dependence with withdrawal, uncomplicated (principal); F11.20 Opioid dependence, uncomplicated; F13.20 Sedative, hypnotic or anxiolytic dependence, uncomplicated; F14.20 Cocaine dependence, uncomplicated; F19.24 Other psychoactive substance dependence with psychoactive substance-induced mood disorder; B18.2 Chronic viral hepatitis C; Z91.410 Personal history of adult physical and sexual abuse
CPT/HCPCS: 36415; 80053; 85027; 86780; C9803; U0003; U0005

== ENCOUNTER 2021-03-20 13:11 | Inpatient (IN) | payer OTHER ==
[2021-03-20] MEDS ORDERED: P-EPHED 60MG/TRIPROLIDI 2.5MG TABLET PO PRN (14:04)
[2021-03-20] MEDS ORDERED: MAGNESIUM HYDROX 2400MG/30ML ORAL SUSPENSION 30 ML CUP PO PRN (14:04)
[2021-03-20] MEDS ORDERED: ACETAMINOPHEN 325 MG TABLET (FP) PO PRN (14:04)
[2021-03-20] MEDS ORDERED: MAG HYDROX/AL HYDROX/SIMETH 30 ML UNIT-DOSE CUP PO PRN (14:04)
[2021-03-20] MEDS ORDERED: MAGNESIUM CITRATE 300 ML BOTTLE PO PRN (14:04)
[2021-03-20] MEDS ORDERED: LOPERAMIDE HCL 2 MG CAPSULE PO PRN (14:04)
[2021-03-20] MEDS ORDERED: MENTHOL/PHENOL 1 EACH UD MM PRN (14:04)
[2021-03-20] MEDS ORDERED: guaiFENesin 200 MG/10 ML 10 ML UNIT-DOSE CUPS PO PRN (14:04)
[2021-03-20] MEDS ORDERED: NICOTINE POLACRILEX 2 MG GUM BUC PRN (14:04)
[2021-03-20] MEDS: THIAMINE HCL 100 MG TABLET (FP) PO SCH ×2 (22:03→22:56)
[2021-03-20] MEDS: MELATONIN 5 MG TABLETS PO SCH ×2 (22:03→22:56)
[2021-03-20] MEDS: hydrOXYzine PAMOATE 25 MG CAPSULE (FP) PO PRN (22:56)
[2021-03-21] MEDS ORDERED: METHADONE HCL 10 MG TABLET PO SCH (06:00)
[2021-03-21] MEDS ORDERED: METHADONE HCL 10 MG TABLET ONE (06:10)
[2021-03-21] MEDS ORDERED: METHADONE HCL 40 MG DISPERSABLE TABLET ONE (06:11)
[2021-03-21] MEDS: METHADONE 160 MG, METHADONE 20 MG PO SCH (06:11)
[2021-03-21] MEDS: PRENATAL VITAMINS W/ FOLIC ACID TABLET (FP) PO SCH (10:09)
[2021-03-21] MEDS: ESCITALOPRAM OXALATE 10 MG TABLET PO SCH (10:09)
[2021-03-21] MEDS: hydrOXYzine PAMOATE 25 MG CAPSULE (FP) PO PRN (10:09)
[2021-03-21] MEDS: THIAMINE HCL 100 MG TABLET (FP) PO SCH (21:32)
[2021-03-21] MEDS: MELATONIN 5 MG TABLETS PO SCH (21:32)
[2021-03-22] MEDS ORDERED: METHADONE HCL 10 MG TABLET ONE (07:03)
[2021-03-22] MEDS ORDERED: METHADONE HCL 40 MG DISPERSABLE TABLET ONE (07:03)
[2021-03-22] MEDS: METHADONE 160 MG, METHADONE 20 MG PO SCH (07:05)
[2021-03-22] MEDS: ESCITALOPRAM OXALATE 10 MG TABLET PO SCH (10:03)
[2021-03-22] MEDS: PRENATAL VITAMINS W/ FOLIC ACID TABLET (FP) PO SCH (10:03)
[2021-03-22] MEDS: MELATONIN 5 MG TABLETS PO SCH (21:39)
[2021-03-22] MEDS: THIAMINE HCL 100 MG TABLET (FP) PO SCH (21:39)
[2021-03-23] MEDS: hydrOXYzine PAMOATE 25 MG CAPSULE (FP) PO PRN ×3 (00:34→21:29)
[2021-03-23] MEDS ORDERED: METHADONE HCL 40 MG DISPERSABLE TABLET ONE (03:06)
[2021-03-23] MEDS ORDERED: METHADONE HCL 10 MG TABLET ONE (03:06)
[2021-03-23] MEDS: METHADONE 160 MG, METHADONE 20 MG PO SCH (06:08)
[2021-03-23] MEDS: PRENATAL VITAMINS W/ FOLIC ACID TABLET (FP) PO SCH (10:16)
[2021-03-23] MEDS: ESCITALOPRAM OXALATE 10 MG TABLET PO SCH (10:17)
[2021-03-23] MEDS: METHOCARBAMOL 500 MG TABLET PO SCH ×2 (14:16→21:29)
[2021-03-23] MEDS: MELATONIN 5 MG TABLETS PO SCH (21:29)
[2021-03-23] MEDS: THIAMINE HCL 100 MG TABLET (FP) PO SCH (21:29)
[2021-03-24] MEDS ORDERED: METHADONE HCL 10 MG TABLET ONE (03:52)
[2021-03-24] MEDS ORDERED: METHADONE HCL 40 MG DISPERSABLE TABLET ONE (03:53)
[2021-03-24] MEDS: METHADONE 160 MG, METHADONE 20 MG PO SCH (06:18)
[2021-03-24] MEDS: METHOCARBAMOL 500 MG TABLET PO SCH ×3 (06:20→22:43)
[2021-03-24] MEDS: ESCITALOPRAM OXALATE 10 MG TABLET PO SCH (10:14)
[2021-03-24] MEDS: PRENATAL VITAMINS W/ FOLIC ACID TABLET (FP) PO SCH (10:15)
[2021-03-24] MEDS: IBUPROFEN 400 MG TABLET (FP) PO PRN (18:13)
[2021-03-24] MEDS: MELATONIN 5 MG TABLETS PO SCH (22:42)
[2021-03-24] MEDS: THIAMINE HCL 100 MG TABLET (FP) PO SCH (22:43)
[2021-03-25] MEDS ORDERED: METHADONE HCL 10 MG TABLET ONE (03:52)
[2021-03-25] MEDS ORDERED: METHADONE HCL 40 MG DISPERSABLE TABLET ONE (03:52)
[2021-03-25 06:07] LABS: SARS-CoV-2 NAA Not Detected (Not Detected)
[2021-03-25] MEDS: METHADONE 160 MG, METHADONE 20 MG PO SCH (06:25)
[2021-03-25] MEDS: METHOCARBAMOL 500 MG TABLET PO SCH ×3 (06:27→21:32)
[2021-03-25] MEDS: PRENATAL VITAMINS W/ FOLIC ACID TABLET (FP) PO SCH (10:23)
[2021-03-25] MEDS: ESCITALOPRAM OXALATE 10 MG TABLET PO SCH (10:24)
[2021-03-25] MEDS: MELATONIN 5 MG TABLETS PO SCH (21:32)
[2021-03-25] MEDS: THIAMINE HCL 100 MG TABLET (FP) PO SCH (21:32)
[2021-03-25] MEDS: hydrOXYzine PAMOATE 25 MG CAPSULE (FP) PO PRN (21:32)
[2021-03-26] MEDS ORDERED: METHADONE HCL 40 MG DISPERSABLE TABLET ONE (03:38)
[2021-03-26] MEDS ORDERED: METHADONE HCL 10 MG TABLET ONE (03:38)
[2021-03-26] MEDS: METHADONE 160 MG, METHADONE 20 MG PO SCH (06:43)
[2021-03-26] MEDS: METHOCARBAMOL 500 MG TABLET PO SCH ×3 (06:45→21:21)
[2021-03-26] MEDS: PRENATAL VITAMINS W/ FOLIC ACID TABLET (FP) PO SCH (10:12)
[2021-03-26] MEDS: ESCITALOPRAM OXALATE 10 MG TABLET PO SCH (10:12)
[2021-03-26] MEDS: MELATONIN 5 MG TABLETS PO SCH (21:21)
[2021-03-26] MEDS: THIAMINE HCL 100 MG TABLET (FP) PO SCH (21:21)
[2021-03-26] MEDS: hydrOXYzine PAMOATE 25 MG CAPSULE (FP) PO PRN (21:21)
[2021-03-27] MEDS ORDERED: METHADONE HCL 40 MG DISPERSABLE TABLET ONE (03:29)
[2021-03-27] MEDS ORDERED: METHADONE HCL 10 MG TABLET ONE (03:29)
[2021-03-27] MEDS: METHADONE 160 MG, METHADONE 20 MG PO SCH (06:33)
[2021-03-27] MEDS: METHOCARBAMOL 500 MG TABLET PO SCH ×3 (06:33→21:40)
[2021-03-27] MEDS: PRENATAL VITAMINS W/ FOLIC ACID TABLET (FP) PO SCH (11:09)
[2021-03-27] MEDS: ESCITALOPRAM OXALATE 10 MG TABLET PO SCH (11:09)
[2021-03-27] MEDS: IBUPROFEN 400 MG TABLET (FP) PO PRN (11:11)
[2021-03-27] MEDS: THIAMINE HCL 100 MG TABLET (FP) PO SCH (21:39)
[2021-03-27] MEDS: MELATONIN 5 MG TABLETS PO SCH (21:39)
[2021-03-27] MEDS: hydrOXYzine PAMOATE 25 MG CAPSULE (FP) PO PRN (21:40)
[2021-03-28] MEDS ORDERED: METHADONE HCL 10 MG TABLET ONE (05:08)
[2021-03-28] MEDS ORDERED: METHADONE HCL 40 MG DISPERSABLE TABLET ONE (05:09)
[2021-03-28] MEDS: METHOCARBAMOL 500 MG TABLET PO SCH ×3 (06:34→21:21)
[2021-03-28] MEDS: METHADONE 160 MG, METHADONE 20 MG PO SCH (06:35)
[2021-03-28] MEDS: PRENATAL VITAMINS W/ FOLIC ACID TABLET (FP) PO SCH (10:14)
[2021-03-28] MEDS: ESCITALOPRAM OXALATE 10 MG TABLET PO SCH (10:14)
[2021-03-28] MEDS: hydrOXYzine PAMOATE 25 MG CAPSULE (FP) PO PRN (21:21)
[2021-03-28] MEDS: MELATONIN 5 MG TABLETS PO SCH (21:21)
[2021-03-28] MEDS: THIAMINE HCL 100 MG TABLET (FP) PO SCH (21:21)
[2021-03-29] MEDS ORDERED: METHADONE HCL 10 MG TABLET ONE (03:55)
[2021-03-29] MEDS ORDERED: METHADONE HCL 40 MG DISPERSABLE TABLET ONE (03:55)
[2021-03-29] MEDS: METHADONE 160 MG, METHADONE 20 MG PO SCH (05:47)
[2021-03-29] MEDS: METHOCARBAMOL 500 MG TABLET PO SCH ×3 (05:48→21:42)
[2021-03-29] MEDS: ESCITALOPRAM OXALATE 10 MG TABLET PO SCH (10:17)
[2021-03-29] MEDS: PRENATAL VITAMINS W/ FOLIC ACID TABLET (FP) PO SCH (10:17)
[2021-03-29] MEDS: MELATONIN 5 MG TABLETS PO SCH (21:42)
[2021-03-29] MEDS: hydrOXYzine PAMOATE 25 MG CAPSULE (FP) PO PRN (21:42)
[2021-03-29] MEDS: THIAMINE HCL 100 MG TABLET (FP) PO SCH (21:42)
[2021-03-30] MEDS ORDERED: METHADONE HCL 40 MG DISPERSABLE TABLET ONE (03:22)
[2021-03-30] MEDS ORDERED: METHADONE HCL 10 MG TABLET ONE (03:22)
[2021-03-30] MEDS: METHADONE 160 MG, METHADONE 20 MG PO SCH (06:54)
[2021-03-30] MEDS: METHOCARBAMOL 500 MG TABLET PO SCH ×3 (07:03→21:28)
[2021-03-30] MEDS: PRENATAL VITAMINS W/ FOLIC ACID TABLET (FP) PO SCH (10:22)
[2021-03-30] MEDS: ESCITALOPRAM OXALATE 10 MG TABLET PO SCH (10:22)
[2021-03-30] MEDS: hydrOXYzine PAMOATE 25 MG CAPSULE (FP) PO PRN ×2 (13:30→21:27)
[2021-03-30] MEDS: THIAMINE HCL 100 MG TABLET (FP) PO SCH (21:27)
[2021-03-30] MEDS: MELATONIN 5 MG TABLETS PO SCH (21:28)
[2021-03-31] MEDS ORDERED: METHADONE HCL 40 MG DISPERSABLE TABLET ONE (04:10)
[2021-03-31] MEDS ORDERED: METHADONE HCL 10 MG TABLET ONE (04:10)
[2021-03-31] MEDS: METHADONE 160 MG, METHADONE 20 MG PO SCH (06:18)
[2021-03-31] MEDS: METHOCARBAMOL 500 MG TABLET PO SCH ×3 (06:37→21:29)
[2021-03-31] MEDS: PRENATAL VITAMINS W/ FOLIC ACID TABLET (FP) PO SCH (10:21)
[2021-03-31] MEDS: ESCITALOPRAM OXALATE 10 MG TABLET PO SCH (10:22)
[2021-03-31] MEDS: THIAMINE HCL 100 MG TABLET (FP) PO SCH (21:29)
[2021-03-31] MEDS: hydrOXYzine PAMOATE 25 MG CAPSULE (FP) PO PRN (21:29)
[2021-03-31] MEDS: MELATONIN 5 MG TABLETS PO SCH (21:29)
[2021-04-01] MEDS ORDERED: METHADONE HCL 10 MG TABLET ONE (06:28)
[2021-04-01] MEDS ORDERED: METHADONE HCL 40 MG DISPERSABLE TABLET ONE (06:29)
[2021-04-01] MEDS: METHADONE 160 MG, METHADONE 20 MG PO SCH (06:29)
[2021-04-01] MEDS: METHOCARBAMOL 500 MG TABLET PO SCH ×3 (06:30→21:31)
[2021-04-01] MEDS: ESCITALOPRAM OXALATE 10 MG TABLET PO SCH (09:54)
[2021-04-01] MEDS: PRENATAL VITAMINS W/ FOLIC ACID TABLET (FP) PO SCH (09:54)
[2021-04-01] MEDS: hydrOXYzine PAMOATE 25 MG CAPSULE (FP) PO PRN ×2 (15:22→21:30)
[2021-04-01] MEDS: MELATONIN 5 MG TABLETS PO SCH (21:30)
[2021-04-01] MEDS: THIAMINE HCL 100 MG TABLET (FP) PO SCH (21:31)
[2021-04-02] MEDS ORDERED: METHADONE HCL 40 MG DISPERSABLE TABLET ONE (03:22)
[2021-04-02] MEDS ORDERED: METHADONE HCL 10 MG TABLET ONE (03:22)
[2021-04-02] MEDS: METHADONE 160 MG, METHADONE 20 MG PO SCH (06:14)
[2021-04-02] MEDS: METHOCARBAMOL 500 MG TABLET PO SCH ×3 (06:14→22:21)
[2021-04-02] MEDS: PRENATAL VITAMINS W/ FOLIC ACID TABLET (FP) PO SCH (10:23)
[2021-04-02] MEDS: ESCITALOPRAM OXALATE 10 MG TABLET PO SCH (10:23)
[2021-04-02] MEDS: hydrOXYzine PAMOATE 25 MG CAPSULE (FP) PO PRN (18:04)
[2021-04-02] MEDS: THIAMINE HCL 100 MG TABLET (FP) PO SCH (22:21)
[2021-04-02] MEDS: MELATONIN 5 MG TABLETS PO SCH (22:21)
[2021-04-03] MEDS ORDERED: METHADONE HCL 40 MG DISPERSABLE TABLET ONE (04:02)
[2021-04-03] MEDS ORDERED: METHADONE HCL 10 MG TABLET ONE (04:02)
[2021-04-03] MEDS ORDERED: METHADONE 160 MG, METHADONE 20 MG PO SCH (06:00)
[2021-04-03] MEDS: METHOCARBAMOL 500 MG TABLET PO SCH (06:37)
[2021-04-03 07:22] VITALS: BP 100/67; PULSE 78; TEMP 96.3
[2021-04-03] MEDS: ESCITALOPRAM OXALATE 10 MG TABLET PO SCH (09:22)
[2021-04-03] MEDS: PRENATAL VITAMINS W/ FOLIC ACID TABLET (FP) PO SCH (09:22)
== END 2021-04-03 09:40 | disposition home or self-care (01) | DRG 772 ==
LOC: YASAS 13:11 → Y5N 13:12
PROVIDERS: ADMIT Allergy & Immunology; ATTEND Allergy & Immunology
PROC: HZ42ZZZ Group Counseling for Substance Abuse Treatment, Cognitive-Behavioral (ICD-10-PCS; principal; 2021-03-20)
DX: F11.20 Opioid dependence, uncomplicated (principal); F10.20 Alcohol dependence, uncomplicated; F14.20 Cocaine dependence, uncomplicated; F13.20 Sedative, hypnotic or anxiolytic dependence, uncomplicated; F32.9 Major depressive disorder, single episode, unspecified; B18.2 Chronic viral hepatitis C
CPT/HCPCS: C9803; U0003; U0005

== ENCOUNTER 2021-10-12 12:49 | Inpatient (IN) | payer OTHER ==
[2021-10-12] MEDS ORDERED: NICOTINE 10 MG CARTRIDGE (INHALER) IH PRN (14:44)
[2021-10-12] MEDS ORDERED: MAGNESIUM HYDROX 2400MG/30ML ORAL SUSPENSION 30 ML CUP PO PRN (14:44)
[2021-10-12] MEDS ORDERED: MAGNESIUM CITRATE 300 ML BOTTLE PO PRN (14:44)
[2021-10-12] MEDS ORDERED: IBUPROFEN 400 MG TABLET (FP) PO PRN (14:44)
[2021-10-12] MEDS ORDERED: MAG HYDROX/AL HYDROX/SIMETH 30 ML UNIT-DOSE CUP PO PRN (14:44)
[2021-10-12] MEDS ORDERED: MENTHOL/PHENOL 1 EACH UD MM PRN (14:44)
[2021-10-12] MEDS ORDERED: ONDANSETRON *ODT* 4 MG TABLET SL PRN (14:44)
[2021-10-12] MEDS ORDERED: diazePAM 5 MG TABLET PO PRN (14:44)
[2021-10-12] MEDS ORDERED: BISMUTH SUBSALICYLATE 524 MG/30 ML PO PRN (14:44)
[2021-10-12] MEDS ORDERED: ACETAMINOPHEN 325 MG TABLET (FP) PO PRN (14:44)
[2021-10-12 15:00] VITALS: BMI 28.5
[2021-10-12] MEDS: hydrOXYzine PAMOATE 25 MG CAPSULE (FP) PO SCH ×2 (17:59→22:36)
[2021-10-12] MEDS: diazePAM 5 MG TABLET PO SCH ×2 (17:59→22:36)
[2021-10-12] MEDS: MELATONIN 5 MG TABLETS PO SCH (22:35)
[2021-10-12] MEDS: THIAMINE HCL 100 MG TABLET (FP) PO SCH (22:36)
[2021-10-13] MEDS: hydrOXYzine PAMOATE 25 MG CAPSULE (FP) PO SCH ×5 (06:50→22:22)
[2021-10-13] MEDS: diazePAM 5 MG TABLET PO SCH ×4 (06:52→22:22)
[2021-10-13] MEDS: PRENATAL VITAMINS W/ FOLIC ACID TABLET (FP) PO SCH (10:27)
[2021-10-13] MEDS: METHOCARBAMOL 500 MG TABLET PO PRN (10:27)
[2021-10-13] MEDS: SODIUM CHLORIDE NASAL SPRAY 44 ML BOTTLE NS PRN (10:29)
[2021-10-13] MEDS ORDERED: methaDONE HCL 10 MG TABLET PO ONE (11:21)
[2021-10-13] MEDS ORDERED: methaDONE HCL 40 MG DISPERSABLE TABLET ONE (12:03)
[2021-10-13 12:15] LABS: HEMATOCRIT 32.4 % (32.4-45.2); HEMOGLOBIN 10.9 GM/dL (10.7-15.3); MCH 30.7 pg (25.7-33.7); MCHC 33.8 g/dl (32.0-36.0); MEAN CELL VOLUME 90.8 fl (80-96); MEAN PLT VOLUME 10.4 fl (7.5-11.1); PLATELET COUNT 195 10^3/uL (134-434); RBC 3.57 M/mm3 (3.60-5.2); RDW 12.9 % (11.6-15.6); WHITE BLOOD COUNT 9.4 K/mm3 (4.0-10.0)
[2021-10-13 12:23] LABS: CALCIUM 8.7 mg/dL (8.5-10.1)
[2021-10-13 12:24] LABS: ALBUMIN 2.6 g/dl (3.4-5.0); BLOOD UREA NITROGEN 10.6 mg/dL (7-18)
[2021-10-13 12:27] LABS: CREATININE 0.7 mg/dL (0.55-1.3)
[2021-10-13 12:28] LABS: BILIRUBIN,TOTAL 0.4 mg/dL (0.2-1)
[2021-10-13] MEDS: THIAMINE HCL 100 MG TABLET (FP) PO SCH (22:22)
[2021-10-13] MEDS: MELATONIN 5 MG TABLETS PO SCH (22:23)
[2021-10-14] MEDS ORDERED: methaDONE HCL 40 MG DISPERSABLE TABLET ONE (04:38)
[2021-10-14] MEDS ORDERED: methaDONE HCL 10 MG TABLET PO SCH (06:00)
[2021-10-14] MEDS: hydrOXYzine PAMOATE 25 MG CAPSULE (FP) PO SCH ×5 (06:07→22:51)
[2021-10-14] MEDS: METHOCARBAMOL 500 MG TABLET PO PRN (07:08)
[2021-10-14] MEDS: diazePAM 5 MG TABLET PO SCH ×3 (07:08→22:51)
[2021-10-14] MEDS: PRENATAL VITAMINS W/ FOLIC ACID TABLET (FP) PO SCH (10:21)
[2021-10-14] MEDS: MELATONIN 5 MG TABLETS PO SCH (22:51)
[2021-10-14] MEDS: THIAMINE HCL 100 MG TABLET (FP) PO SCH (22:51)
[2021-10-14] MEDS: ACETAMINOPHEN 325 MG TABLET (FP) PO PRN (22:54)
[2021-10-15] MEDS ORDERED: methaDONE HCL 40 MG DISPERSABLE TABLET ONE (04:33)
[2021-10-15] MEDS ORDERED: methaDONE HCL 10 MG TABLET ONE (04:33)
[2021-10-15] MEDS ORDERED: methaDONE HCL 40 MG DISPERSABLE TABLET PO SCH (06:00)
[2021-10-15] MEDS: hydrOXYzine PAMOATE 25 MG CAPSULE (FP) PO SCH ×5 (07:15→22:39)
[2021-10-15] MEDS: diazePAM 5 MG TABLET PO SCH ×2 (07:16→17:57)
[2021-10-15] MEDS: PRENATAL VITAMINS W/ FOLIC ACID TABLET (FP) PO SCH (10:08)
[2021-10-15] MEDS: THIAMINE HCL 100 MG TABLET (FP) PO SCH (22:39)
[2021-10-15] MEDS: MELATONIN 5 MG TABLETS PO SCH (22:39)
[2021-10-16] MEDS: SODIUM CHLORIDE NASAL SPRAY 44 ML BOTTLE NS PRN (00:06)
[2021-10-16] MEDS ORDERED: diazePAM 5 MG TABLET PO ONE (06:00)
[2021-10-16] MEDS: hydrOXYzine PAMOATE 25 MG CAPSULE (FP) PO SCH (06:19)
[2021-10-16] MEDS: ACETAMINOPHEN 325 MG TABLET (FP) PO PRN (06:30)
[2021-10-16] MEDS ORDERED: methaDONE HCL 10 MG TABLET PO SCH (09:00)
[2021-10-16] MEDS ORDERED: methaDONE HCL 40 MG DISPERSABLE TABLET ONE (09:39)
[2021-10-16] MEDS ORDERED: methaDONE HCL 10 MG TABLET ONE (09:39)
[2021-10-16 10:01] VITALS: BP 116/81; PULSE 95; TEMP 98.2
== END 2021-10-16 09:45 | disposition home or self-care (01) | DRG 773 ==
LOC: YASAS 12:49 → Y6N 15:30
PROVIDERS: ADMIT Allergy & Immunology; ATTEND Allergy & Immunology
PROC: HZ2ZZZZ Detoxification Services for Substance Abuse Treatment (ICD-10-PCS; principal; 2021-10-12)
DX: F10.230 Alcohol dependence with withdrawal, uncomplicated (principal); F11.20 Opioid dependence, uncomplicated; F13.230 Sedative, hypnotic or anxiolytic dependence with withdrawal, uncomplicated; F14.20 Cocaine dependence, uncomplicated; F17.210 Nicotine dependence, cigarettes, uncomplicated; F32.A Depression, unspecified; F19.24 Other psychoactive substance dependence with psychoactive substance-induced mood disorder; Z86.19 Personal history of other infectious and parasitic diseases; Z56.0 Unemployment, unspecified
CPT/HCPCS: 36415; 80053; 81025; 85027; 86780; C9803; U0003; U0005

== ENCOUNTER 2022-02-02 15:40 | Inpatient (IN) | payer OTHER ==
[2022-02-02] MEDS ORDERED: MAGNESIUM CITRATE 300 ML BOTTLE PO PRN (19:26)
[2022-02-02] MEDS ORDERED: LOPERAMIDE HCL 2 MG CAPSULE PO PRN (19:26)
[2022-02-02] MEDS ORDERED: IBUPROFEN 400 MG TABLET (FP) PO PRN (19:26)
[2022-02-02] MEDS ORDERED: guaiFENesin 200 MG/10 ML 10 ML UNIT-DOSE CUPS PO PRN (19:26)
[2022-02-02] MEDS ORDERED: MAG HYDROX/AL HYDROX/SIMETH 30 ML UNIT-DOSE CUP PO PRN (19:26)
[2022-02-02 22:22] VITALS: BMI 25.3
[2022-02-03] MEDS: THIAMINE HCL 100 MG TABLET (FP) PO SCH ×2 (00:15→21:09)
[2022-02-03] MEDS: MELATONIN 5 MG TABLETS PO PRN (00:51)
[2022-02-03] MEDS: hydrOXYzine PAMOATE 25 MG CAPSULE (FP) PO PRN ×2 (00:51→20:23)
[2022-02-03] MEDS: metroNIDAZOLE 250 MG TABLET PO SCH ×3 (00:55→23:47)
[2022-02-03] MEDS ORDERED: methaDONE HCL 10 MG TABLET PO ONE (09:34)
[2022-02-03] MEDS ORDERED: methaDONE 40 MG, methaDONE 20 MG PO ONE (09:50)
[2022-02-03] MEDS ORDERED: methaDONE HCL 40 MG DISPERSABLE TABLET ONE (09:58)
[2022-02-03] MEDS ORDERED: methaDONE HCL 10 MG TABLET ONE (09:58)
[2022-02-03] MEDS: PRENATAL VITAMINS W/ FOLIC ACID TABLET (FP) PO SCH (10:01)
[2022-02-03 10:06] LABS: HEMATOCRIT 37.5 % (32.4-45.2); HEMOGLOBIN 12.8 GM/dL (10.7-15.3); MCH 30.3 pg (25.7-33.7); MCHC 34.2 g/dl (32.0-36.0); MEAN CELL VOLUME 88.7 fl (80-96); PLATELET COUNT 293 10^3/uL (134-434); RBC 4.23 M/mm3 (3.60-5.2); RDW 13.5 % (11.6-15.6); WHITE BLOOD COUNT 6.9 K/mm3 (4.0-10.0)
[2022-02-03 10:08] LABS: ALBUMIN 3.2 g/dl (3.4-5.0); BLOOD UREA NITROGEN 10.2 mg/dL (7-18); CALCIUM 9.6 mg/dL (8.5-10.1)
[2022-02-03 10:11] LABS: CREATININE 0.8 mg/dL (0.55-1.3)
[2022-02-03 10:13] LABS: BILIRUBIN,TOTAL 0.6 mg/dL (0.2-1); TOT PROT 6.9 g/dl (6.4-8.2)
[2022-02-03 15:22] LABS: EPI CELLS 26 /uL (0-25.1); HYALINE CASTS 0 /uL (0-3.1); URINE APPEARANCE CLEAR; URINE BACTERIA 450 /uL (0-1359); URINE BILIRUBIN NEGATIVE (NEGATIVE); URINE COLOR YELLOW; URINE GLUCOSE (UA) NEGATIVE (NEGATIVE); URINE KETONE NEGATIVE (NEGATIVE); URINE LEUK ESTERASE TRACE (NEGATIVE); URINE NITRITE NEGATIVE (NEGATIVE); URINE PROTEIN NEGATIVE (NEGATIVE); URINE RBC 8 /uL (0-23.9); URINE UROBILINOGEN 0.2 mg/dL (0.2-1.0); URINE WBC 24 /uL (0-25.8)
[2022-02-03] MEDS ORDERED: metroNIDAZOLE 500 MG TABLET PO SCH ×2 (22:21→23:45)
[2022-02-04] MEDS ORDERED: methaDONE HCL 10 MG TABLET PO SCH (06:00)
[2022-02-04] MEDS ORDERED: methaDONE HCL 10 MG TABLET ONE (06:04)
[2022-02-04] MEDS: methaDONE 40 MG, methaDONE 20 MG PO SCH (06:05)
[2022-02-04] MEDS ORDERED: methaDONE HCL 40 MG DISPERSABLE TABLET ONE (06:05)
[2022-02-04] MEDS ORDERED: FLUoxetine HCL 10 MG TABLET PO SCH (10:00)
[2022-02-04] MEDS: PRENATAL VITAMINS W/ FOLIC ACID TABLET (FP) PO SCH (10:01)
[2022-02-04] MEDS: FLUoxetine HCL 10 MG CAPSULE PO SCH (10:01)
[2022-02-04] MEDS: metroNIDAZOLE 250 MG TABLET PO SCH ×2 (10:34→21:32)
[2022-02-04] MEDS: hydrOXYzine PAMOATE 25 MG CAPSULE (FP) PO PRN (12:58)
[2022-02-04] MEDS: MELATONIN 5 MG TABLETS PO PRN (21:31)
[2022-02-04] MEDS: THIAMINE HCL 100 MG TABLET (FP) PO SCH (21:32)
[2022-02-05] MEDS ORDERED: methaDONE HCL 40 MG DISPERSABLE TABLET ONE (02:34)
[2022-02-05] MEDS ORDERED: methaDONE HCL 10 MG TABLET ONE (02:34)
[2022-02-05] MEDS: methaDONE 40 MG, methaDONE 20 MG PO SCH (06:06)
[2022-02-05] MEDS: PRENATAL VITAMINS W/ FOLIC ACID TABLET (FP) PO SCH (10:30)
[2022-02-05] MEDS: FLUoxetine HCL 10 MG CAPSULE PO SCH (10:30)
[2022-02-05] MEDS: metroNIDAZOLE 250 MG TABLET PO SCH ×2 (10:31→21:28)
[2022-02-05] MEDS: hydrOXYzine PAMOATE 25 MG CAPSULE (FP) PO PRN (14:42)
[2022-02-05] MEDS: METHOCARBAMOL 500 MG TABLET PO PRN (16:41)
[2022-02-05] MEDS: THIAMINE HCL 100 MG TABLET (FP) PO SCH (21:28)
[2022-02-05] MEDS: MELATONIN 5 MG TABLETS PO PRN (21:29)
[2022-02-06] MEDS ORDERED: methaDONE HCL 10 MG TABLET ONE (04:59)
[2022-02-06] MEDS ORDERED: methaDONE HCL 40 MG DISPERSABLE TABLET ONE (04:59)
[2022-02-06] MEDS: methaDONE 40 MG, methaDONE 20 MG PO SCH (06:10)
[2022-02-06] MEDS: metroNIDAZOLE 250 MG TABLET PO SCH ×2 (10:43→21:40)
[2022-02-06] MEDS: PRENATAL VITAMINS W/ FOLIC ACID TABLET (FP) PO SCH (10:44)
[2022-02-06] MEDS: FLUoxetine HCL 10 MG CAPSULE PO SCH (10:44)
[2022-02-06] MEDS: hydrOXYzine PAMOATE 25 MG CAPSULE (FP) PO PRN (12:37)
[2022-02-06] MEDS: THIAMINE HCL 100 MG TABLET (FP) PO SCH (21:40)
[2022-02-06] MEDS: METHOCARBAMOL 500 MG TABLET PO PRN (21:40)
[2022-02-06] MEDS: ACETAMINOPHEN 325 MG TABLET (FP) PO PRN (21:41)
[2022-02-06] MEDS: MELATONIN 5 MG TABLETS PO PRN (21:41)
[2022-02-07 00:07] LABS: SARS-CoV-2 NAA Not Detected (Not Detected)
[2022-02-07] MEDS ORDERED: methaDONE HCL 40 MG DISPERSABLE TABLET ONE (03:05)
[2022-02-07] MEDS ORDERED: methaDONE HCL 10 MG TABLET ONE (03:05)
[2022-02-07] MEDS: methaDONE 40 MG, methaDONE 20 MG PO SCH (05:36)
[2022-02-07] MEDS: PRENATAL VITAMINS W/ FOLIC ACID TABLET (FP) PO SCH (10:18)
[2022-02-07] MEDS: metroNIDAZOLE 250 MG TABLET PO SCH ×2 (10:19→21:43)
[2022-02-07] MEDS: FLUoxetine HCL 10 MG CAPSULE PO SCH (10:19)
[2022-02-07] MEDS: hydrOXYzine PAMOATE 25 MG CAPSULE (FP) PO PRN (14:12)
[2022-02-07] MEDS: MAGNESIUM HYDROX 2400MG/30ML ORAL SUSPENSION 30 ML CUP PO PRN (19:07)
[2022-02-07] MEDS: THIAMINE HCL 100 MG TABLET (FP) PO SCH (21:43)
[2022-02-07] MEDS: MELATONIN 5 MG TABLETS PO PRN (21:44)
[2022-02-08] MEDS ORDERED: methaDONE HCL 10 MG TABLET ONE (03:12)
[2022-02-08] MEDS ORDERED: methaDONE HCL 40 MG DISPERSABLE TABLET ONE (03:12)
[2022-02-08] MEDS: METHOCARBAMOL 500 MG TABLET PO PRN ×2 (06:14→21:37)
[2022-02-08] MEDS: methaDONE 40 MG, methaDONE 20 MG PO SCH (06:14)
[2022-02-08] MEDS: metroNIDAZOLE 250 MG TABLET PO SCH ×2 (10:36→21:38)
[2022-02-08] MEDS: PRENATAL VITAMINS W/ FOLIC ACID TABLET (FP) PO SCH (10:36)
[2022-02-08] MEDS: FLUoxetine HCL 10 MG CAPSULE PO SCH (10:36)
[2022-02-08] MEDS: hydrOXYzine PAMOATE 25 MG CAPSULE (FP) PO PRN ×2 (13:26→20:13)
[2022-02-08] MEDS: THIAMINE HCL 100 MG TABLET (FP) PO SCH (21:37)
[2022-02-08] MEDS: MELATONIN 5 MG TABLETS PO PRN (21:38)
[2022-02-08] MEDS: VITAMINS A AND D TOPICAL OINTMENT 60 GM TUBE TP SCH (21:39)
[2022-02-08] MEDS: DOCUSATE SODIUM 100 MG CAPSULE (FP) PO SCH (21:55)
[2022-02-09] MEDS ORDERED: methaDONE HCL 40 MG DISPERSABLE TABLET ONE (03:46)
[2022-02-09] MEDS ORDERED: methaDONE HCL 10 MG TABLET ONE (03:46)
[2022-02-09] MEDS: methaDONE 40 MG, methaDONE 20 MG PO SCH (07:09)
[2022-02-09] MEDS: ACETAMINOPHEN 325 MG TABLET (FP) PO PRN (07:49)
[2022-02-09] MEDS: PRENATAL VITAMINS W/ FOLIC ACID TABLET (FP) PO SCH (10:35)
[2022-02-09] MEDS: metroNIDAZOLE 250 MG TABLET PO SCH ×2 (10:35→21:38)
[2022-02-09] MEDS: FLUoxetine HCL 10 MG CAPSULE PO SCH (10:36)
[2022-02-09] MEDS: VITAMINS A AND D TOPICAL OINTMENT 60 GM TUBE TP SCH ×2 (10:36→21:37)
[2022-02-09] MEDS: MAGNESIUM HYDROX 2400MG/30ML ORAL SUSPENSION 30 ML CUP PO PRN (19:07)
[2022-02-09] MEDS: THIAMINE HCL 100 MG TABLET (FP) PO SCH (21:36)
[2022-02-09] MEDS: DOCUSATE SODIUM 100 MG CAPSULE (FP) PO SCH (21:38)
[2022-02-10] MEDS ORDERED: methaDONE HCL 10 MG TABLET ONE (05:20)
[2022-02-10] MEDS ORDERED: methaDONE HCL 40 MG DISPERSABLE TABLET ONE (05:20)
[2022-02-10] MEDS: ACETAMINOPHEN 325 MG TABLET (FP) PO PRN (05:39)
[2022-02-10] MEDS: methaDONE 40 MG, methaDONE 20 MG PO SCH (07:26)
[2022-02-10] MEDS: PRENATAL VITAMINS W/ FOLIC ACID TABLET (FP) PO SCH (10:23)
[2022-02-10] MEDS: VITAMINS A AND D TOPICAL OINTMENT 60 GM TUBE TP SCH ×2 (10:23→23:58)
[2022-02-10] MEDS: FLUoxetine HCL 10 MG CAPSULE PO SCH (10:24)
[2022-02-10] MEDS: hydrOXYzine PAMOATE 25 MG CAPSULE (FP) PO PRN (21:40)
[2022-02-10] MEDS: METHOCARBAMOL 500 MG TABLET PO PRN (21:40)
[2022-02-10] MEDS: MELATONIN 5 MG TABLETS PO PRN (21:41)
[2022-02-10] MEDS: THIAMINE HCL 100 MG TABLET (FP) PO SCH (21:41)
[2022-02-10] MEDS: DOCUSATE SODIUM 100 MG CAPSULE (FP) PO SCH (21:41)
[2022-02-11] MEDS ORDERED: methaDONE HCL 10 MG TABLET ONE (04:12)
[2022-02-11] MEDS ORDERED: methaDONE HCL 40 MG DISPERSABLE TABLET ONE (04:13)
[2022-02-11] MEDS: methaDONE 40 MG, methaDONE 20 MG PO SCH (07:07)
[2022-02-11] MEDS: FLUoxetine HCL 10 MG CAPSULE PO SCH (10:31)
[2022-02-11] MEDS: VITAMINS A AND D TOPICAL OINTMENT 60 GM TUBE TP SCH ×2 (10:32→21:39)
[2022-02-11] MEDS: PRENATAL VITAMINS W/ FOLIC ACID TABLET (FP) PO SCH (10:32)
[2022-02-11] MEDS: hydrOXYzine PAMOATE 25 MG CAPSULE (FP) PO PRN (12:40)
[2022-02-11] MEDS: THIAMINE HCL 100 MG TABLET (FP) PO SCH (21:39)
[2022-02-11] MEDS: DOCUSATE SODIUM 100 MG CAPSULE (FP) PO SCH (21:39)
[2022-02-12] MEDS ORDERED: methaDONE HCL 40 MG DISPERSABLE TABLET ONE (03:54)
[2022-02-12] MEDS ORDERED: methaDONE HCL 10 MG TABLET ONE (03:54)
[2022-02-12] MEDS: methaDONE 40 MG, methaDONE 20 MG PO SCH (06:05)
[2022-02-12] MEDS: METHOCARBAMOL 500 MG TABLET PO PRN (10:18)
[2022-02-12] MEDS: PRENATAL VITAMINS W/ FOLIC ACID TABLET (FP) PO SCH (10:18)
[2022-02-12] MEDS: FLUoxetine HCL 10 MG CAPSULE PO SCH (10:18)
[2022-02-12] MEDS: VITAMINS A AND D TOPICAL OINTMENT 60 GM TUBE TP SCH ×2 (10:19→21:58)
[2022-02-12] MEDS: hydrOXYzine PAMOATE 25 MG CAPSULE (FP) PO PRN (14:42)
[2022-02-12] MEDS: P-EPHED 60MG/TRIPROLIDI 2.5MG TABLET PO PRN (19:02)
[2022-02-12] MEDS: DOCUSATE SODIUM 100 MG CAPSULE (FP) PO SCH (21:58)
[2022-02-12] MEDS: THIAMINE HCL 100 MG TABLET (FP) PO SCH (22:00)
[2022-02-13] MEDS ORDERED: methaDONE HCL 40 MG DISPERSABLE TABLET ONE (07:04)
[2022-02-13] MEDS ORDERED: methaDONE HCL 10 MG TABLET ONE (07:04)
[2022-02-13] MEDS: methaDONE 40 MG, methaDONE 20 MG PO SCH (07:06)
[2022-02-13] MEDS: PRENATAL VITAMINS W/ FOLIC ACID TABLET (FP) PO SCH (10:33)
[2022-02-13] MEDS: FLUoxetine HCL 10 MG CAPSULE PO SCH (10:33)
[2022-02-13] MEDS: VITAMINS A AND D TOPICAL OINTMENT 60 GM TUBE TP SCH ×2 (10:34→21:52)
[2022-02-13] MEDS: P-EPHED 60MG/TRIPROLIDI 2.5MG TABLET PO PRN (14:33)
[2022-02-13] MEDS: DOCUSATE SODIUM 100 MG CAPSULE (FP) PO SCH (21:52)
[2022-02-13] MEDS: hydrOXYzine PAMOATE 25 MG CAPSULE (FP) PO PRN (21:52)
[2022-02-13] MEDS: MELATONIN 5 MG TABLETS PO PRN (21:52)
[2022-02-13] MEDS: THIAMINE HCL 100 MG TABLET (FP) PO SCH (21:52)
[2022-02-13] MEDS: METHOCARBAMOL 500 MG TABLET PO PRN (21:53)
[2022-02-14] MEDS ORDERED: methaDONE HCL 10 MG TABLET ONE (05:51)
[2022-02-14] MEDS ORDERED: methaDONE HCL 40 MG DISPERSABLE TABLET ONE (05:51)
[2022-02-14] MEDS: methaDONE 40 MG, methaDONE 20 MG PO SCH (06:43)
[2022-02-14] MEDS: PRENATAL VITAMINS W/ FOLIC ACID TABLET (FP) PO SCH (10:19)
[2022-02-14] MEDS: hydrOXYzine PAMOATE 25 MG CAPSULE (FP) PO PRN (10:19)
[2022-02-14] MEDS: FLUoxetine HCL 10 MG CAPSULE PO SCH (10:19)
[2022-02-14] MEDS: VITAMINS A AND D TOPICAL OINTMENT 60 GM TUBE TP SCH (10:19)
[2022-02-15] MEDS: THIAMINE HCL 100 MG TABLET (FP) PO SCH ×2 (00:03→21:50)
[2022-02-15] MEDS: DOCUSATE SODIUM 100 MG CAPSULE (FP) PO SCH ×2 (00:03→21:50)
[2022-02-15] MEDS: VITAMINS A AND D TOPICAL OINTMENT 60 GM TUBE TP SCH ×3 (00:03→21:50)
[2022-02-15] MEDS ORDERED: methaDONE HCL 10 MG TABLET ONE (05:21)
[2022-02-15] MEDS ORDERED: methaDONE HCL 40 MG DISPERSABLE TABLET ONE (05:21)
[2022-02-15] MEDS: methaDONE 40 MG, methaDONE 20 MG PO SCH (06:37)
[2022-02-15] MEDS: PRENATAL VITAMINS W/ FOLIC ACID TABLET (FP) PO SCH (10:34)
[2022-02-15] MEDS: hydrOXYzine PAMOATE 25 MG CAPSULE (FP) PO PRN ×2 (10:34→22:29)
[2022-02-15] MEDS: FLUoxetine HCL 10 MG CAPSULE PO SCH (10:34)
[2022-02-15] MEDS: MELATONIN 5 MG TABLETS PO PRN (22:29)
[2022-02-15] MEDS: METHOCARBAMOL 500 MG TABLET PO PRN (22:29)
[2022-02-16] MEDS: P-EPHED 60MG/TRIPROLIDI 2.5MG TABLET PO PRN (01:17)
[2022-02-16] MEDS ORDERED: methaDONE HCL 10 MG TABLET ONE (03:55)
[2022-02-16] MEDS ORDERED: methaDONE HCL 40 MG DISPERSABLE TABLET ONE (03:55)
[2022-02-16] MEDS: methaDONE 40 MG, methaDONE 20 MG PO SCH (06:10)
[2022-02-16] MEDS: PRENATAL VITAMINS W/ FOLIC ACID TABLET (FP) PO SCH (10:12)
[2022-02-16] MEDS: FLUoxetine HCL 10 MG CAPSULE PO SCH (10:13)
[2022-02-16] MEDS: VITAMINS A AND D TOPICAL OINTMENT 60 GM TUBE TP SCH ×2 (10:13→22:28)
[2022-02-16] MEDS: hydrOXYzine PAMOATE 25 MG CAPSULE (FP) PO PRN (15:36)
[2022-02-16] MEDS ORDERED: COLLOIDAL OATMEAL 1 BAR EACH TP PRN (15:57)
[2022-02-16] MEDS: THIAMINE HCL 100 MG TABLET (FP) PO SCH (22:28)
[2022-02-16] MEDS: DOCUSATE SODIUM 100 MG CAPSULE (FP) PO SCH (22:28)
[2022-02-17] MEDS ORDERED: methaDONE HCL 10 MG TABLET ONE (05:35)
[2022-02-17] MEDS ORDERED: methaDONE HCL 40 MG DISPERSABLE TABLET ONE (05:36)
[2022-02-17] MEDS: methaDONE 40 MG, methaDONE 20 MG PO SCH (05:51)
[2022-02-17] MEDS: PRENATAL VITAMINS W/ FOLIC ACID TABLET (FP) PO SCH (10:09)
[2022-02-17] MEDS: METHOCARBAMOL 500 MG TABLET PO PRN (10:09)
[2022-02-17] MEDS: hydrOXYzine PAMOATE 25 MG CAPSULE (FP) PO PRN (10:09)
[2022-02-17] MEDS: FLUoxetine HCL 10 MG CAPSULE PO SCH (10:10)
[2022-02-17] MEDS: VITAMINS A AND D TOPICAL OINTMENT 60 GM TUBE TP SCH ×2 (10:10→22:19)
[2022-02-17] MEDS: DOCUSATE SODIUM 100 MG CAPSULE (FP) PO SCH (22:19)
[2022-02-17] MEDS: THIAMINE HCL 100 MG TABLET (FP) PO SCH (22:20)
[2022-02-18] MEDS: methaDONE 40 MG, methaDONE 20 MG PO SCH (06:41)
[2022-02-18] MEDS ORDERED: methaDONE HCL 10 MG TABLET ONE (06:41)
[2022-02-18] MEDS ORDERED: methaDONE HCL 40 MG DISPERSABLE TABLET ONE (06:41)
[2022-02-18] MEDS: PRENATAL VITAMINS W/ FOLIC ACID TABLET (FP) PO SCH (10:43)
[2022-02-18] MEDS: VITAMINS A AND D TOPICAL OINTMENT 60 GM TUBE TP SCH ×2 (10:43→22:25)
[2022-02-18] MEDS: FLUoxetine HCL 10 MG CAPSULE PO SCH (10:43)
[2022-02-18] MEDS: hydrOXYzine PAMOATE 25 MG CAPSULE (FP) PO PRN (10:43)
[2022-02-18] MEDS: THIAMINE HCL 100 MG TABLET (FP) PO SCH (22:25)
[2022-02-18] MEDS: DOCUSATE SODIUM 100 MG CAPSULE (FP) PO SCH (22:25)
[2022-02-19] MEDS ORDERED: methaDONE HCL 10 MG TABLET ONE (03:48)
[2022-02-19] MEDS ORDERED: methaDONE HCL 40 MG DISPERSABLE TABLET ONE (03:48)
[2022-02-19] MEDS: methaDONE 40 MG, methaDONE 20 MG PO SCH (07:00)
[2022-02-19] MEDS: VITAMINS A AND D TOPICAL OINTMENT 60 GM TUBE TP SCH ×2 (10:20→22:20)
[2022-02-19] MEDS: PRENATAL VITAMINS W/ FOLIC ACID TABLET (FP) PO SCH (10:20)
[2022-02-19] MEDS: METHOCARBAMOL 500 MG TABLET PO PRN (10:21)
[2022-02-19] MEDS: FLUoxetine HCL 10 MG CAPSULE PO SCH (10:21)
[2022-02-19] MEDS: hydrOXYzine PAMOATE 25 MG CAPSULE (FP) PO PRN (10:21)
[2022-02-19] MEDS: THIAMINE HCL 100 MG TABLET (FP) PO SCH (22:20)
[2022-02-19] MEDS: DOCUSATE SODIUM 100 MG CAPSULE (FP) PO SCH (22:20)
[2022-02-20] MEDS ORDERED: methaDONE HCL 40 MG DISPERSABLE TABLET ONE (03:53)
[2022-02-20] MEDS ORDERED: methaDONE HCL 10 MG TABLET ONE (03:53)
[2022-02-20] MEDS: methaDONE 40 MG, methaDONE 20 MG PO SCH (07:10)
[2022-02-20] MEDS: FLUoxetine HCL 10 MG CAPSULE PO SCH (10:25)
[2022-02-20] MEDS: VITAMINS A AND D TOPICAL OINTMENT 60 GM TUBE TP SCH ×2 (10:25→22:19)
[2022-02-20] MEDS: PRENATAL VITAMINS W/ FOLIC ACID TABLET (FP) PO SCH (10:25)
[2022-02-20] MEDS: DOCUSATE SODIUM 100 MG CAPSULE (FP) PO SCH (22:19)
[2022-02-20] MEDS: THIAMINE HCL 100 MG TABLET (FP) PO SCH (22:19)
[2022-02-21] MEDS ORDERED: methaDONE HCL 40 MG DISPERSABLE TABLET ONE (03:53)
[2022-02-21] MEDS ORDERED: methaDONE HCL 10 MG TABLET ONE (03:53)
[2022-02-21] MEDS: methaDONE 40 MG, methaDONE 20 MG PO SCH (06:07)
[2022-02-21] MEDS: PRENATAL VITAMINS W/ FOLIC ACID TABLET (FP) PO SCH (10:15)
[2022-02-21] MEDS: FLUoxetine HCL 10 MG CAPSULE PO SCH (10:15)
[2022-02-21] MEDS: VITAMINS A AND D TOPICAL OINTMENT 60 GM TUBE TP SCH ×2 (10:16→23:59)
[2022-02-21] MEDS: THIAMINE HCL 100 MG TABLET (FP) PO SCH (23:59)
[2022-02-21] MEDS: DOCUSATE SODIUM 100 MG CAPSULE (FP) PO SCH (23:59)
[2022-02-22] MEDS ORDERED: methaDONE HCL 10 MG TABLET ONE (05:57)
[2022-02-22] MEDS ORDERED: methaDONE HCL 40 MG DISPERSABLE TABLET ONE (05:57)
[2022-02-22] MEDS: methaDONE 40 MG, methaDONE 20 MG PO SCH (06:06)
[2022-02-22] MEDS: PRENATAL VITAMINS W/ FOLIC ACID TABLET (FP) PO SCH (10:19)
[2022-02-22] MEDS: VITAMINS A AND D TOPICAL OINTMENT 60 GM TUBE TP SCH ×2 (10:22→22:05)
[2022-02-22] MEDS: hydrOXYzine PAMOATE 25 MG CAPSULE (FP) PO PRN (10:22)
[2022-02-22] MEDS: METHOCARBAMOL 500 MG TABLET PO PRN (10:22)
[2022-02-22] MEDS: FLUoxetine HCL 10 MG CAPSULE PO SCH (11:48)
[2022-02-22] MEDS: DOCUSATE SODIUM 100 MG CAPSULE (FP) PO SCH (22:05)
[2022-02-22] MEDS: THIAMINE HCL 100 MG TABLET (FP) PO SCH (22:05)
[2022-02-23] MEDS ORDERED: methaDONE HCL 10 MG TABLET ONE (03:44)
[2022-02-23] MEDS ORDERED: methaDONE HCL 40 MG DISPERSABLE TABLET ONE (03:44)
[2022-02-23] MEDS: methaDONE 40 MG, methaDONE 20 MG PO SCH (06:06)
[2022-02-23 07:33] VITALS: BP 120/85; PULSE 83; TEMP 97.7
[2022-02-23] MEDS: FLUoxetine HCL 10 MG CAPSULE PO SCH (09:58)
[2022-02-23] MEDS: VITAMINS A AND D TOPICAL OINTMENT 60 GM TUBE TP SCH (09:58)
[2022-02-23] MEDS: PRENATAL VITAMINS W/ FOLIC ACID TABLET (FP) PO SCH (09:58)
== END 2022-02-23 10:35 | disposition home or self-care (01) | DRG 772 ==
LOC: YASAS 15:40 → Y5N 22:14
PROVIDERS: ADMIT Allergy & Immunology; ATTEND Allergy & Immunology
PROC: HZ42ZZZ Group Counseling for Substance Abuse Treatment, Cognitive-Behavioral (ICD-10-PCS; principal; 2022-02-02)
DX: F11.20 Opioid dependence, uncomplicated (principal); F10.20 Alcohol dependence, uncomplicated; F14.20 Cocaine dependence, uncomplicated; F12.20 Cannabis dependence, uncomplicated; F17.210 Nicotine dependence, cigarettes, uncomplicated; F19.24 Other psychoactive substance dependence with psychoactive substance-induced mood disorder; F32.A Depression, unspecified; N39.0 Urinary tract infection, site not specified; K59.01 Slow transit constipation; B18.2 Chronic viral hepatitis C; Z28.310 Unvaccinated for COVID-19; Z91.410 Personal history of adult physical and sexual abuse
CPT/HCPCS: 36415; 80053; 81003; 85027; 86780; 87086; C9803-CS; U0003; U0005